=== PATIENT | male | born 1985 | race Caucasian/White ===

== ENCOUNTER 2023-12-12 18:06 | Emergency (ER) | payer OTHER ==
[2023-12-12] MEDS: Bacitracin Oint 1 GM U/D Packet TOP ONE (19:19)
== END 2023-12-12 20:16 | disposition home or self-care (01) ==
LOC: MERGE 18:06 → JP.ED 18:06
DX: S63.502A Unspecified sprain of left wrist, initial encounter (principal); S53.402A Unspecified sprain of left elbow, initial encounter; F17.210 Nicotine dependence, cigarettes, uncomplicated; Z79.899 Other long term (current) drug therapy; Z88.5 Allergy status to narcotic agent; Z88.8 Allergy status to other drugs, medicaments and biological substances; V19.9XXA Pedal cyclist (driver) (passenger) injured in unspecified traffic accident, initial encounter
CPT/HCPCS: 73080-26-LT; 73080-LT; 73110-26-LT; 73110-LT; 99283